=== PATIENT | female | born 1940 | race Hispanic/Latino ===

== ENCOUNTER → 2024-04-09 | Outpatient (CLI) | payer OTHER, MEDICARE ==
[~2024-04-09] MED LIST: LIDOCAINE HCL 4% LTA SOL 4 ML VIAL ONE
== END | disposition home or self-care (01) ==
LOC: WHH 09:02
PROVIDERS: ATTEND Family Medicine
DX: L89.154 Pressure ulcer of sacral region, stage 4 (principal); L89.216 Pressure-induced deep tissue damage of right hip; L89.896 Pressure-induced deep tissue damage of other site; E44.0 Moderate protein-calorie malnutrition; Z85.89 Personal history of malignant neoplasm of other organs and systems
CPT/HCPCS: 11042; 11045; A6213

== ENCOUNTER → 2024-04-16 | Outpatient (CLI) | payer OTHER, MEDICARE | END | disposition home or self-care (01) | LOC: WHH 08:30 | PROVIDERS: ATTEND Family Medicine | DX: L89.154 Pressure ulcer of sacral region, stage 4 (principal); L89.216 Pressure-induced deep tissue damage of right hip; L89.896 Pressure-induced deep tissue damage of other site; E44.0 Moderate protein-calorie malnutrition; Z85.89 Personal history of malignant neoplasm of other organs and systems | CPT/HCPCS: G0463; A6213; A4450 ==